=== PATIENT | male | born 1955 | race Caucasian/White ===

== ENCOUNTER 2017-10-12 05:38 | Day surgery (SDC) | payer MEDICARE, BC ==
[2017-10-04 12:39] LABS: BASOPHILS % (AUTO) 0.2 % (0-1); EOSINOPHILS # (AUTO) 0.2 X10'3 (0-0.9); EOSINOPHILS % (AUTO) 2.9 % (0-6); LYMPHOCYTES # (AUTO) 1.4 X10'3 (1.1-4.8); LYMPHOCYTES % (AUTO) 23.5 % (21-51); MEAN CORPUSCULAR HEMOGLOBIN 30.7 PG (27.0-31.0); MEAN CORPUSCULAR HGB CONC 34.6 % (33.0-36.5); MEAN CORPUSCULAR VOLUME 88.9 FL (78-98); MEAN PLATELET VOLUME 8.9 FL (7.4-10.4); MONOCYTES # (AUTO) 0.4 X10'3 (0-0.9); MONOCYTES % (AUTO) 6.8 % (2-12); NEUTROPHILS % (AUTO) 66.6 % (42-75); PRE OP HEMATOCRIT 47.9 % (42.0-52.0); PRE OP HEMOGLOBIN 16.5 g/dL (14.0-17.9); PRE OP PLATELET COUNT 168 X10'3 (140-440); RED BLOOD COUNT 5.39 X10'6 (4.70-6.10); RED CELL DISTRIBUTION WIDTH 17.1 % (11.5-14.5)
[2017-10-04 12:46] LABS: INR 3.2 INR; PROTHROMBIN TIME 32.1 SECONDS (9.0-12.0)
[2017-10-04 12:51] LABS: ALBUMIN 4.1 G/DL (3.4-5.0); ALBUMIN/GLOBULIN RATIO 1.2 (1.1-1.5); ALKALINE PHOSPHATASE 41 IU/L (46-116); BLOOD UREA NITROGEN 32 MG/DL (7-18); BUN/CREATININE RATIO 22.2 (5.4-32.0); CALCIUM 10.7 MG/DL (8.5-10.1); CHLORIDE 107 MMOL/L (99-107); CREATININE 1.44 MG/DL (0.60-1.10); PRE OP ALT 55 U/L (30-65); PRE OP ANION GAP 8 (8-16); PRE OP AST 42 U/L (10-37); PRE OP BILIRUB, TOTAL 0.8 MG/DL (0.0-1.0); PRE OP POTASSIUM 3.7 MMOL/L (3.4-5.1); PRE OP SODIUM 145 MMOL/L (135-145); TOTAL CARBON DIOXIDE 29.8 MMOL/L (24-32); TOTAL PROTEIN 7.5 G/DL (6.4-8.2); eGFR 50 ML/MIN
[2017-10-04 12:54] LABS: PRE OP GLUCOSE 103 MG/DL (70-104)
[2017-10-04 13:01] LABS: PRE OP PARTIAL THROMB. TIME 40 SECONDS (22-35)
[2017-10-04 13:04] LABS: HEMOGLOBIN A1C 5.3 % (4.5-6.2)
[~2017-10-12] VITALS: Ht 177.8 cm; Wt 126.9 kg
[2017-10-12] VITALS (7 sets, daily range): BP systolic 103–157; BP diastolic 48–81
[~2017-10-12 05:38] MED LIST: ATOR20TA PO; CHOL100044 PO; FENO130C8 PO; KRIL500C PO; MAGN400C PO; MULT-1141 PO; OMEG1CAP46 PO; PRAV40TA3 PO; TEST200V10 IM; VALS1TAB50 PO; VITA-268 PO; VITA150T PO; WARF-55 PO; ceFAZolin inj. 2,000 MG in dextrose 5%-water 100 ML IV ONE; famotidine 20mg tablet PO ONE; ringers solution, lacted 1,000 ML IV SCH
[2017-10-12] MEDS ORDERED: LIDOcaine 1% (10mg/ml) 2ml vial ONE (06:03)
[2017-10-12] MEDS ORDERED: methylPREDNISolone sod succ 125mg/2ml vial ONE ×3 (06:07→06:50)
[2017-10-12] MEDS ORDERED: BUPIVAcaine/PF 2.5 mg/ml (0.25%) 30ml vial ONE ×2 (06:07→06:41)
[2017-10-12 06:28] LABS: PRE OP PROTIME 24.2 SECONDS (9.0-12.0)
[2017-10-12 06:34] LABS: PRE OP INR 2.4 INR
[2017-10-12] MEDS ORDERED: LIDOcaine 1% 30ml preserv. free vial ONE (07:16)
[2017-10-12] MEDS ORDERED: ringers solution, lacted 1,000 ML IV SCH (07:17)
[2017-10-12] MEDS ORDERED: ondansetron/PF 4mg/2ml inj IV PRN (07:20)
[2017-10-12] MEDS ORDERED: proCHLORperazine 10 MG/2 ml inj IV PRN (07:20)
[2017-10-12] MEDS ORDERED: meperidine/PF 50mg/ml syringe IV PRN ×3 (07:20)
[2017-10-12] MEDS ORDERED: morphine 4 MG/ML inj SYRINge IV PRN ×2 (07:20)
[2017-10-12] MEDS ORDERED: MIDAZolam 1mg/ml 10ml vial ONE (07:38)
[2017-10-12] MEDS ORDERED: fentaNYL/PF 50MCG/1 ML 2ML syringe ONE (07:39)
[2017-10-12] MEDS ORDERED: sodium bicarbonate 1 MEQ/1 ml inj ONE (08:21)
[2017-10-12] MEDS ORDERED: propofol inj 20 ML IV ONE (08:21)
[2017-10-12] MEDS ORDERED: 0.9 % SODIUM CHLORIDE 10 ML VIAL ONE ×2 (08:21)
== END 2017-10-12 09:10 | disposition home or self-care (01) ==
LOC: PAS 05:38
PROVIDERS: ATTEND Orthopaedic Surgery
DX: G56.02 Carpal tunnel syndrome, left upper limb (principal); G56.22 Lesion of ulnar nerve, left upper limb; I10 Essential (primary) hypertension; E78.5 Hyperlipidemia, unspecified; G47.33 Obstructive sleep apnea (adult) (pediatric); E66.9 Obesity, unspecified; M19.90 Unspecified osteoarthritis, unspecified site; L40.8 Other psoriasis; Z95.2 Presence of prosthetic heart valve; Z79.01 Long term (current) use of anticoagulants; Z68.41 Body mass index [BMI] 40.0-44.9, adult; Z98.890 Other specified postprocedural states; Z79.899 Other long term (current) drug therapy
CPT/HCPCS: 36415; 64719; 64721; 80053; 83036; 85025; 85610; 85730; 93005; A6222; A6449; J0690; J2250; J2704; J2930; J3010; J3490; J7060; J7120; A7000